=== PATIENT | female | born 1995 | race African-American/Black ===

== ENCOUNTER 2016-10-12 00:21 | Emergency (ER) | payer MEDICAID ==
[2016-10-12] MEDS ORDERED: RHO(D) IMMUNE GLOBULIN 300 MCG SYRINGE IM ONE (02:33)
== END 2016-10-12 04:19 | disposition home or self-care (01) ==
DX: O20.0 Threatened abortion (principal); Z3A.01 Less than 8 weeks gestation of pregnancy

== ENCOUNTER 2016-10-13 13:34 | Outpatient (CLI) | payer MEDICAID | END 2016-10-13 13:35 | disposition home or self-care (01) | DX: N63 Unspecified lump in breast (principal) ==

== ENCOUNTER 2021-04-17 23:06 | Emergency (ER) | payer MEDICAID ==
[2021-04-17] MEDS ORDERED: RHO(D) IMMUNE GLOBULIN 300 MCG SYRINGE IVP ONE (23:19)
[2021-04-17 23:35] LABS: HCG UR QUAL POSITIVE
[2021-04-17 23:36] LABS: BILIRUBIN,URINE NEGATIVE (NEGATIVE); GLUCOSE, URINE (UA) NEGATIVE (NEGATIVE); KETONES,URINE (UA) NEGATIVE (NEGATIVE); LEUKOCYTE ESTERASE, URINE NEGATIVE (NEGATIVE); NITRITE,URINE NEGATIVE (NEGATIVE); OCCULT BLOOD,URINE LARGE (NEGATIVE); PROTEIN,URINE NEGATIVE (NEGATIVE); UROBILINOGEN,URINE 0.2 (NORMAL) E.U./dL (NORMAL)
[2021-04-17 23:38] LABS: BASOPHILS % (AUTO) 0.3 %; EOSINOPHILS # (AUTO) 0.1 10^3/uL (0.0-0.7); HCT - HEMATOCRIT 36.9 % (37.0-47.0); HGB - HEMOGLOBIN 11.8 g/dL (12.0-16.0); LYMPHOCYTES # (AUTO) 2.4 10^3/uL (1.5-3.5); LYMPHOCYTES % (AUTO) 21.1 %; MEAN CORPUSCULAR HEMOGLOBIN 27.2 pg (27.0-31.0); MEAN PLATELET VOLUME 9.7 fL (7.9-10.8); MONOCYTES # (AUTO) 0.7 10^3/uL (0.0-1.0); NEUTROPHILS # (AUTO) 8.2 10^3/uL (1.5-6.6); NEUTROPHILS % (AUTO) 71.1 %; PLT - PLATELET COUNT 204 10^3/uL (130-450); RED BLOOD COUNT 4.34 10^6/uL (4.20-5.40); RED CELL DISTRIBUTION WIDTH 12.3 % (12.0-15.0); WHITE BLOOD COUNT 11.5 x10^3/uL (4.8-10.8)
[2021-04-17 23:42] LABS: CLARITY,URINE CLEAR (CLEAR)
[2021-04-17 23:43] LABS: BACTERIA,URINE Rare /HPF (None Seen); SQUAMOUS EPITHELIAL CELL,UR MOD Squamous (<= Few); WBC,URINE 0-3 /HPF (0-5)
[2021-04-17 23:51] LABS: ALBUMIN 3.6 g/dL (3.2-5.5); ALBUMIN/GLOBULIN RATIO 1.2 (1.0-2.2); ALKALINE PHOSPHATASE 34 IU/L (42-121); ALT ALANINE AMINOTRANSFERASE < 10 IU/L (10-60); AST ASPARTATE AMINOTRANSFERASE 14 IU/L (10-42); BILIRUBIN,TOTAL 0.3 mg/dL (0.2-1.0); BUN - BLOOD UREA NITROGEN 6 mg/dL (6-20); CALCIUM 9.1 mg/dL (8.5-10.3); CARBON DIOXIDE - CO2 22 mmol/L (21-32); CHLORIDE 103 mmol/L (101-111); CREATININE 0.6 mg/dL (0.4-1.0); GFR - MDRD 145 (>89); GLUCOSE 106 mg/dL (70-100); LIPASE 29 U/L (22-51); POTASSIUM 3.9 mmol/L (3.5-5.0); SODIUM 136 mmol/L (135-145); TOTAL PROTEIN 6.7 g/dL (6.7-8.2)
--- NOTE | 2021-04-18 01:18 | ED Physician Documentation ---
History of Present Illness - Stated complaint Stated Complaint: F - Chief complaint Chief Complaint: Abd Pain - History obtained from History obtained from: Patient - Additonal information Additional information: 26yF at 13 weeks of p/w vaginal bleeding starting this evening while having sex with her partner. denies abdominal pain, contractions, urinary sx. her microbiology analyst is at an OSH. patient is O negative. this has been uncomplicated thus far. Review of Systems Ten Systems: 10 systems reviewed and negative Constitutional: denies: Fever, Chills Cardiac: denies: Chest pain / pressure Respiratory: denies: Dyspnea GI: denies: Abdominal Pain, Nausea : reports: Vaginal bleeding. denies: Dysuria PD PAST MEDICAL HISTORY - Past Medical History Past Medical History: Yes Cardiovascular: None Respiratory: None Endocrine/Autoimmune: None GI: None ASTHMA EDUCATOR: None : None HEENT: None Psych: None Musculoskeletal: None Derm: None - Past Surgical History Past Surgical History: No - Present Medications Home Medications: Ambulatory Orders Medication Instructions Recorded Confirmed Pnv No.103/Folic/Om3s/Fish Oil 1 tab PO DAILY 10/12/16 10/12/16 [ Gummies] - Allergies Allergies/Adverse Reactions: Allergies Allergy/AdvReac Type Severity Reaction Status Date / Time Sulfa (Sulfonamide Allergy Rash Verified 04/17/21 23:11 Antibiotics) - Social History Does the pt smoke?: No Smoking Status: Never smoker Does the pt drink ETOH?: No Does the pt have substance abuse?: No - Immunizations Immunizations are current?: Yes - POLST Patient has POLST: No PD ED PE NORMAL - Vitals Vital signs reviewed: Yes - General General: Alert and oriented X 3, No acute distress, Well developed/nourished - HEENT HEENT: Atraumatic, PERRL, EOMI - Neck Neck: Supple, no meningeal sign - Cardiac Cardiac: RRR - Respiratory Respiratory: No respiratory distress, Clear bilaterally - Abdomen Abdomen: Non tender, Non distended - Back Back: No CVA TTP - Derm Derm: Normal color, Warm and dry - Extremities Extremities: No deformity, No edema - Neuro Neuro: Alert and oriented X 3 - Psych Psych: Normal mood, Normal affect Results - Vitals Vitals: Vital Signs - 24 hr 04/17/21 04/17/21 23:11 23:14 Temperature 36.5 C 36.5 C Heart Rate 100 100 Respiratory 16 16 Rate Blood Pressure 136/64 H 136/64 H O2 Saturation 99 99 Oxygen O2 Source Room air - Labs Labs: Laboratory Tests 04/17/21 04/17/21 04/17/21 23:22 23:22 23:29 WBC 11.5 H RBC 4.34 Hgb 11.8 L Hct 36.9 L MCV 85.0 MCH 27.2 MCHC 32.0 RDW 12.3 Plt Count 204 MPV 9.7 Neut # (Auto) 8.2 H Lymph # (Auto) 2.4 [place] # (Auto) 0.7 Eos # (Auto) 0.1 Baso # (Auto) 0.0 Absolute Nucleated RBC 0.00 Nucleated RBC % 0.0 Sodium Potassium Chloride Carbon Dioxide Anion Gap BUN Creatinine Estimated GFR (MDRD) Glucose Calcium Total Bilirubin AST ALT Alkaline Phosphatase Total Protein Albumin Globulin Albumin/Globulin Ratio Lipase HCG, Quant Urine Color YELLOW Urine Clarity CLEAR Urine pH 6.0 Ur Specific [place] 1.025 Urine Protein NEGATIVE Urine Glucose (UA) NEGATIVE Urine Ketones NEGATIVE Urine Occult Blood LARGE H Urine Nitrite NEGATIVE Urine Bilirubin NEGATIVE Urine Urobilinogen 0.2 (NORMAL) Ur Leukocyte Esterase NEGATIVE Urine RBC 11-25 H Urine WBC 0-3 Ur Squamous Epith Cells MOD Squamous H Urine Bacteria Rare Ur Microscopic Review INDICATED Urine Culture Comments NOT INDICATED Urine HCG, Qual POSITIVE 04/17/21 04/17/21 23:29 23:29 WBC RBC Hgb Hct MCV MCH MCHC RDW Plt Count MPV Neut # (Auto) Lymph # (Auto) [place] # (Auto) Eos # (Auto) Baso # (Auto) Absolute Nucleated RBC Nucleated RBC % Sodium 136 Potassium 3.9 Chloride 103 Carbon Dioxide 22 Anion Gap 11.0 BUN 6 Creatinine 0.6 Estimated GFR (MDRD) 145 Glucose 106 H Calcium 9.1 Total Bilirubin 0.3 AST 14 ALT < 10 L Alkaline Phosphatase 34 L Total Protein 6.7 Albumin 3.6 Globulin 3.1 Albumin/Globulin Ratio 1.2 Lipase 29 HCG, Quant 248863.00 Urine Color Urine Clarity Urine pH Ur Specific [place] Urine Protein Urine Glucose (UA) Urine Ketones Urine Occult Blood Urine Nitrite Urine Bilirubin Urine Urobilinogen Ur Leukocyte Esterase Urine RBC Urine WBC Ur Squamous Epith Cells Urine Bacteria Ur Microscopic Review Urine Culture Comments Urine HCG, Qual PD MEDICAL DECISION MAKING - ED course ED course: FHR 158. subchorionic bleeding on ultrasound. advised patient to call her windows migration technician tomorrow for f/u appointment. She will need to continue to monitor. strict return precautions given. pelvic rest advised until cleared by microbiology analyst. Departure - Departure Disposition: 01 Home, Self Care Clinical Impression: Vaginal bleeding affecting early , Subchorionic bleed Condition: Stable Instructions: ED Miscarriage Poss Comments: You were seen in the emergency department for vaginal bleeding during . You received rhogam, a medicine to protect you and your current / future pregnancies from blood type related complications since your blood type is O-. Your blood hcg level is 704649 (for your windows migration technician's records). Your baby's heart rate is in a healthy range but the ultrasound detected bleeding in the uterus (subchorionic hemorrhage) that needs to be carefully monitored. Do not have sex or put anything in the vagina until cleared by your windows migration technician. Return to the emergency department if you have new or worsening symptoms or other concerns.
[2021-04-18 01:26] VITALS: BP 125/65
--- NOTE | 2021-04-18 01:30 | Ultrasound Report ---
PROCEDURE: OB First Trimester w/TV INDICATIONS: vaginal bleeding 12 wga OUTSIDE/PRIOR DATING DATA: Last menstrual period (LMP): 01/30/2021. LMP-based estimated date of delivery (CLAIRE): 11/06/2021. First dating scan (date and location): 04/18/2021. Estimated date of delivery (CLAIRE) from first dating scan: 10/29/2021. The below data below was generated using the ultrasound CLAIRE of 10/29/2021 TECHNIQUE: Real-time scanning was performed of the fetus and maternal pelvic organs, with image documentation. Endovaginal scanning was also performed to better visualize the fetus and maternal ovaries. COMPARISON: None from this FINDINGS: Embryo: There is an intrauterine gestational sac seen, with a pole present, which measures 5.7 cm, which corresponds to an estimated gestational age of 12 weeks 2 days. cardiac activity is seen, with a measured heart rate of 158 bpm. Fundal perigestational/subchorionic hemorrhage can be seen, which measures 4.2 x 2.4 x 3 cm. Measurement variability in dating: +/- 4 weeks by LMP, +/- 7 days by mean sac diameter (use before 6 weeks gestation if crown-rump length not able to be measured), +/- 5 days by crown-rump length (6-12 weeks gestation). Maternal organs: The right ovary is not seen. The left ovary is within normal limits. IMPRESSION: Single live intrauterine . There is an 8 day discrepancy between the estimated gestational age based upon these images and the e stimated gestational age based upon the given date of the last menstrual period. Please correlate wit h precise clinical data. Mild subchorionic hemorrhage. Close clinical follow-up with serial beta hCG measurements and serial ultrasound would be recommended , as clinically appropriate. Reviewed by: Dominick Rucker MD on 04/18/2021 12:28 AM [facility] Approved by: Dominick Rucker MD on 04/18/2021 12:28 AM [facility] Station ID: [id number]
== END 2021-04-18 01:28 | disposition home or self-care (01) ==
LOC: ED 23:06
DX: O20.8 Other hemorrhage in early pregnancy (principal); O26.891 Other specified pregnancy related conditions, first trimester; Z67.41 Type O blood, Rh negative; Z3A.13 13 weeks gestation of pregnancy
CPT/HCPCS: 36415; 80053; 81001; 81003; 81025; 83690; 84702; 85025; 87086; 96374; 99282